=== PATIENT | male | born 2000 | race Caucasian/White ===

== ENCOUNTER 2018-02-14 11:13 | Emergency (ER) | payer BC ==
[~2018-02-14] VITALS: Ht 185.4 cm; Wt 61.4 kg
[2018-02-14 11:22] VITALS: Ht 185.4 cm; Wt 61.4 kg
[2018-02-14] MEDS ORDERED: TORADOL10 MG PO (12:55)
[2018-02-14 13:15] VITALS: BP 119/81
== END 2018-02-14 13:16 | disposition home or self-care (01) ==
LOC: D.ER 11:13
DX: S90.111A Contusion of right great toe without damage to nail, initial encounter (principal); W22.8XXA Striking against or struck by other objects, initial encounter; Y93.89 Activity, other specified; Y92.89 Other specified places as the place of occurrence of the external cause; F17.200 Nicotine dependence, unspecified, uncomplicated

== ENCOUNTER 2020-03-19 12:25 | Emergency (ER) | payer BC ==
[~2020-03-19] VITALS: Ht 182.9 cm; Wt 61.4 kg
[~2020-03-19 12:25] MED LIST: TORADOL10 MG PO
[2020-03-19 12:43] VITALS: Ht 182.9 cm; Wt 61.4 kg
[2020-03-19 13:14] LABS: BASOPHILS 0.1 % (0-2); EOSINOPHILS 0.3 % (0-7); HEMATOCRIT 43.6 % (42.0-54.0); HEMOGLOBIN 15.3 g/dL (13.5-17.5); IMMATURE GRANULOCYTES 0.1 % (0-5); LYMPHOCYTES 17.4 % (15-50); MCH 30.8 pg (26.0-34.0); MCHC 35.1 g/dL (31.0-37.0); MCV 87.9 fL (80.0-100.0); MEAN PLATELET VOLUME 9.6 fL (7.4-10.4); MONOCYTES 7.2 % (2-11); NEUTROPHILS 74.9 % (40-80); PLATELET COUNT 285 10x3/uL (130-400); RBC 4.96 10x6/uL (4.20-6.10); RDW 12.9 % (11.5-14.5); WBC 14.7 10x3/uL (4.8-10.8)
[2020-03-19 13:19] LABS: BILIRUBIN NEGATIVE (NEGATIVE); GLUCOSE NEGATIVE (NEGATIVE); KETONE NEGATIVE (NEGATIVE); NITRITE NEGATIVE (NEGATIVE); SPECIFIC GRAVITY 1.005 (1.005-1.020); UROBILINOGEN NORMAL (NORMAL)
[2020-03-19 13:24] LABS: BACTERIA FEW /hpf (NEGATIVE); EPITHELIAL CELLS 0-5 /hpf (0-5); RED CELLS - URINE 25-50 /hpf (0-5)
[2020-03-19 13:26] LABS: CALC OSMOLALITY 274 mosm/kg (275-300); CALCIUM 9.3 mg/dL (8.5-10.1); CHLORIDE - SERUM 99 mmol/L (98-107); CREATININE - SERUM 1.1 mg/dL (0.6-1.3); GLUCOSE 103 mg/dL (74-106); SODIUM 137 mmol/L (136-145); UREA NITROGEN 15 mg/dL (7-18); eGFR NON AFRICAN AMERICAN 90 mL/min (90-120)
[2020-03-19 13:34] LABS: ALBUMIN 4.1 g/dL (3.4-5.0); ALKALINE PHOSPHATASE 109 U/L (30-120); ALT (SGPT) 27 U/L (10-68); AMYLASE - SERUM 35 U/L (25-115); BILIRUBIN - TOTAL 0.55 mg/dL (0.2-1.3); LIPASE 92 U/L (73-393); PROTEIN - SERUM 7.7 g/dL (6.4-8.2)
[2020-03-19 13:37] LABS: TROPONIN-I < 0.017 ng/mL (0.000-0.060)
[2020-03-19 16:56] VITALS: BP 134/81
== END 2020-03-19 16:57 | disposition other institution (70) ==
LOC: D.ER 12:25
DX: R10.30 Lower abdominal pain, unspecified (principal); N13.30 Unspecified hydronephrosis; E87.6 Hypokalemia; N20.0 Calculus of kidney; D72.828 Other elevated white blood cell count; N39.0 Urinary tract infection, site not specified; R11.10 Vomiting, unspecified